=== PATIENT | female | born 2005 | race Caucasian/White ===

== ENCOUNTER 2025-07-26 13:29 | Emergency (ER) | payer OTHER ==
[~2025-07-26] VITALS: Ht 154.9 cm; Wt 94.0 kg
[2025-07-26 13:40] VITALS: BP 118/86; PULSE 120; TEMP 97.3
--- NOTE | 2025-07-26 13:51 | ED.PDOC ---
SOB-HPI HPI Comments 19 year old female with PMHx asthma presents to the ED with a chief complaint of asthma exacerbation onset today around 12:30. Patient states she has been experiencing chest tightness, shortness of breath for the past 2 days, went to urgent care yesterday, had CXR, was given breathing treatment, IV steroids, was prescribed steroids, diagnosed with URI, symptoms improved. Patient states she noticed chest tightness was worsening, took a warm bath, shortness of breath worsened, used inhaler with no improvement, called 911. She was given breathing treatment in route to ED by EMS, states symptoms have improved. Denies dizziness, headache, nausea, vomiting, diarrhea, sore throat. No other symptoms or modifying factors present at this time. Time Seen by MD: 13:40 Reviewed notes: Medications, Allergies Information Source: Patient, Emergency Med Personnel Mode of Arrival: EMS Severity: Moderate Timing: Days Duration: Since onset Context: At Rest PE Risk Factors: None History of: Asthma Prehospital treatment: Breathing Tx, Oxygen Modifying Factors: Nothing Associated Signs and Symptoms: Wheeze, Cough Quality: Tightness Radiation: No Radiation Location: Substernal Past Medical History PAST MEDICAL HISTORY: Asthma Surgical History: Appendectomy OUTPATIENT SERVICES DIRECTOR History: No Pertinent OUTPATIENT SERVICES DIRECTOR History Family History Family History: Family hx of Cancer Social History Smoker: Cigarettes Alcohol: Occasionally Drugs: Marijuana Lives In: Home Constitutional: denies: chills, diaphoresis, fatigue, fever, malaise, sweats, weakness, others EENTM: denies: blurred vision, double vision, ear bleeding, ear discharge, ear drainage, ear pain, ear ringing, eye pain, eye redness, hearing loss, mouth pain, mouth swelling, nasal discharge, nose bleeding, nose congestion, nose pain, photophobia, tearing, throat pain, throat swelling, voice changes, others Respiratory: reports: cough, shortness of breath; denies: hemoptysis, orthopnea, SOB at rest, SOB with excertion, stridor, wheezing, others Cardiovascular: reports: chest pain; denies: dizzy spells, diaphoresis, Dyspnea on exertion, edema, irregular heart beat, left arm pain, lightheadedness, palpitations, PND, syncope, others Gastrointestinal: denies: abdomen distended, abdominal pain, blood streaked bowels, constipated, diarrhea, dysphagia, difficulty swallowing, hematemesis, melena, nausea, poor appetite, poor fluid intake, rectal bleeding, rectal pain, vomiting, others Genitourinary: denies: abnormal vagina bleeding, burning, dyspareunia, dysuria, flank pain, frequency, hematuria, incontinence, pain, , vagina discharge, urgency, others Neurological: denies: dizziness, fainting, headache, left sided numbness, left sided weakness, numbness, paresthesia, pre-existing deficit, right sided numbness, right sided weakness, seizure, speech problems, tingling, tremors, weakness, others Musculoskeletal: denies: back pain, gout, joint pain, joint swelling, muscle pain, muscle stiffness, neck pain, others Integumetry: denies: bruises, change in color, change in hair/nails, dryness, laceration, lesions, lumps, rash, wounds, others Allergic/Immunocompromised: denies: Difficulty Healing, Frequent Infections, Hives, Itching, others Hematologic/Lymphatic: denies: anemia, blood clots, easy bleeding, easy bruising, swollen glands, others Endocrine: denies: excessive hunger, excessive sweating, excessive thirst, excessive urination, flushing, intolerance to cold, intolerance to heat, unexplained weight gain, unexplained weight loss, others Psychiatric: denies: anxiety, bipolar disorder, depression, hopeless, panic disorder, schizophrenia, sleepless, suicidal, others All Other Systems: Reviewed and Negative Physical Exam General Appearance: Moderate Distress HEENT: Normal ENT Inspection, Pharynx Normal, TMs Normal Neck: Full Range of Motion, Non-Tender, Normal, Normal Inspection Respiratory: Accessory Muscle Use, Chest Non-Tender, Decreased Breath Sounds, Respiratory Distress, Wheezing Cardiovascular: No Edema, No JVD, No Murmur, No Gallop, Regular Rate/Rhythm Breast Exam: Deferred Gastrointestinal: No Organomegaly, Non Tender, No Pulsatile Mass, Normal Bowel Sounds, Soft Genitalia: Deferred Pelvic: Deferred Rectal: Deferred Extremities: No calf tenderness, Normal capillary refill, Normal inspection, Normal range of motion, Non-tender, No pedal edema Musculoskeletal : Apperance: Normal Neurologic: Alert, yardage control operator forming II-XII nml as Tested, No Motor Deficits, Normal Affect, Normal Mood, No Sensory Deficits Cerebellar Function: Normal Reflexes: Normal Skin: Dry, Normal Color, Warm Lymphatic: No Adenopathy Was a procedure done? Was a procedure done?: No Differential Dx Differential Diagnosis: Asthma, Bronchitis, CHF, Pneumonia X-Ray, Labs, Meds, VS Vital Signs Date Time Temp Pulse Resp B/P (MAP) Pulse Ox O2 Delivery O2 Flow Rate FiO2 07/26/25 14:06 20 96 Room Air* 0 21 07/26/25 13:40 97.3 120 24 118/86 94 97.3 Current Medications Medications (Trade) Dose Ordered Sig/Avel Route Start Time Stop Time Status Last Admin Albuterol (Ventolin Medneb) 5 mg ONCE ONCE N 07/26/25 14:00 07/26/25 14:01 DC 07/26/25 14:04 Ipratropium [place] (Atrovent Medneb) 0.5 mg ONCE ONCE [facility] 07/26/25 14:00 07/26/25 14:01 DC 07/26/25 14:04 The patient has a chest x-ray done yesterday which was negative The patient did receive a breathing treatment here in the emergency department's The patient is feeling much better and is being discharged and will return to the emergency department's the condition. Time of 1ST Reevaluation: 14:10 Reevaluation 1ST: Unchanged Time of 2ND Reevaluation: 15:23 Reevaluation 2ND: Improved Patient Education/Counseling: Diagnosis, Treatment, Prognosis, Need For Follow Up Family Education/Counseling: No Family Present SEPSIS Sepsis Screen Physician Orders Med Neb Initial Treatment (07/26/25 13:46) Vital Signs Date Time Temp Pulse Resp B/P (MAP) Pulse Ox O2 Delivery O2 Flow Rate FiO2 07/26/25 14:06 20 96 Room Air* 0 21 07/26/25 13:40 97.3 120 24 118/86 94 97.3 Medications Medications Dose Ordered Sig/Avel Route Start Time Stop Time Status Last Admin Dose Admin Albuterol 5 mg ONCE ONCE [facility] 07/26/25 14:00 07/26/25 14:01 DC 07/26/25 14:04 Ipratropium [place] 0.5 mg ONCE ONCE [facility] 07/26/25 14:00 07/26/25 14:01 DC 07/26/25 14:04 Departure 1 Departure Time of Disposition: 15:21 Impression: Primary Impression: Acute asthma exacerbation Qualified Codes: J45.41 - Moderate persistent asthma with (acute) exacerbation Disposition: 01 HOME / SELF CARE / HOMELESS Condition: Fair Discharged With: Self Critical Care Note Critical Care Time?: No Stability Stability form required: No Heart Score Heart Score: Heart Score Response (Comments) Value History N/A 0 EKG N/A 0 Age N/A 0 Risk Factors N/A 0 Troponin N/A 0 Total 0 I personally scribed for HARPAL LUTHER MD ([email or web address]) on 07/26/25 at 13:51. E lectronically submitted by Heidi Bahena ([email or web address]). HARPAL LUTHER MD Jul 26, 2025 13:51
[2025-07-26] MEDS: ALBUTEROL SULF 2.5 MG/0.5ML(0.5%) NEB SOLN HHN ONE (14:04)
[2025-07-26] MEDS: IPRATROPIUM BROM 0.5 MG/2.5ML INH SOL HHN ONE (14:04)
[2025-07-26 14:06] VITALS: RESP 20; O2SAT 96
== END 2025-07-26 15:06 | disposition left against medical advice (07) ==
LOC: ER 13:29 → EDBD 13:29 → ER 15:06
DX: J45.901 Unspecified asthma with (acute) exacerbation (principal); F17.210 Nicotine dependence, cigarettes, uncomplicated; F12.90 Cannabis use, unspecified, uncomplicated; Z90.49 Acquired absence of other specified parts of digestive tract
CPT/HCPCS: 94640